=== PATIENT | female | born 1950 | race Caucasian/White ===

== ENCOUNTER 2020-07-19 06:25 | Day surgery (SDC) | payer OTHER, MEDICARE ==
[2020-07-16 18:03] VITALS: BMI 22.4
[2020-07-19] MEDS ORDERED: SUCCINYLCHOLINE CHLORIDE 200 MG/10 ML SYRINGE ONE (07:16)
[2020-07-19] MEDS ORDERED: MIDAZOLAM HCL 2 MG/2 ML SINGLE DOSE VIAL ONE (07:16)
[2020-07-19] MEDS ORDERED: PROPOFOL 20 ML ONE (07:16)
[2020-07-19] MEDS ORDERED: BUPIVACAINE HCL/PF 0.25% (2.5MG/ML) 10 ML VIAL ONE (07:18)
[2020-07-19] MEDS ORDERED: LIDOCAINE HCL 1%, 10 MG/ML (20ML VIAL) ONE (07:19)
[2020-07-19] MEDS ORDERED: oxyCODONE HCL 5 MG TABLET PO PRN (07:53)
[2020-07-19] MEDS ORDERED: ONDANSETRON 4 MG/2 ML VIAL IVPUSH PRN (07:53)
[2020-07-19] MEDS ORDERED: ACETAMINOPHEN 325 MG TABLET (FP) PO PRN (07:53)
[2020-07-19] MEDS ORDERED: ceFAZolin SODIUM 1 GM VIAL ONE (07:54)
[2020-07-19] MEDS ORDERED: LACTATED RINGERS SOLUTION 1,000 ML IV SCH (08:00)
[2020-07-19] MEDS ORDERED: DEXAMETHASONE SOD PHOSPHATE 4 MG/1 ML VIAL ONE (08:01)
[2020-07-19] MEDS ORDERED: KETOROLAC TROMETHAMINE 30 MG/1 ML VIAL ONE (08:01)
[2020-07-19] MEDS ORDERED: BUPIVACAINE HCL/PF 0.25% (2.5MG/ML) 10 ML VIAL IJ ONE (08:09)
[2020-07-19] MEDS ORDERED: LIDOCAINE 1% P/F 10 MG/ML VIAL INF ONE (08:09)
[2020-07-19 09:13] VITALS: TEMP 97.7
[2020-07-19 10:14] VITALS: BP 114/63; PULSE 86
== END 2020-07-19 10:05 | disposition home or self-care (01) ==
LOC: FASU 06:25
PROVIDERS: ATTEND Orthopaedic Surgery
PROC: 01N50ZZ Release Median Nerve, Open Approach (ICD-10-PCS; principal; 2020-07-19 08:09)
DX: G56.02 Carpal tunnel syndrome, left upper limb (principal)
CPT/HCPCS: 94760

== ENCOUNTER 2020-11-15 06:14 | Day surgery (SDC) | payer OTHER, MEDICARE ==
[2020-11-12 09:52] VITALS: BMI 22.1
[2020-11-15] MEDS ORDERED: BUPIVACAINE HCL/PF 0.25% (2.5MG/ML) 10 ML VIAL ONE (07:20)
[2020-11-15] MEDS ORDERED: LIDOCAINE HCL 1%, 10 MG/ML (20ML VIAL) ONE (07:21)
[2020-11-15] MEDS ORDERED: MIDAZOLAM HCL 2 MG/2 ML SINGLE DOSE VIAL ONE (07:24)
[2020-11-15] MEDS ORDERED: PROPOFOL 20 ML ONE ×2 (07:28)
[2020-11-15] MEDS ORDERED: SUCCINYLCHOLINE CHLORIDE 200 MG/10 ML SYRINGE ONE (07:28)
[2020-11-15] MEDS ORDERED: ceFAZolin SODIUM 1 GM VIAL ONE (07:43)
[2020-11-15] MEDS ORDERED: ONDANSETRON 4 MG/2 ML VIAL ONE (07:43)
[2020-11-15] MEDS ORDERED: DEXAMETHASONE SOD PHOSPHATE 4 MG/1 ML VIAL ONE (07:43)
[2020-11-15 08:27] VITALS: TEMP 98.4
[2020-11-15 09:14] VITALS: BP 118/64; PULSE 59
== END 2020-11-15 09:10 | disposition home or self-care (01) ==
LOC: FASU 06:14
PROVIDERS: ATTEND Orthopaedic Surgery
PROC: 01N50ZZ Release Median Nerve, Open Approach (ICD-10-PCS; principal; 2020-11-15 07:58)
DX: G56.01 Carpal tunnel syndrome, right upper limb (principal)

== ENCOUNTER 2022-01-03 22:46 | Emergency (ER) | payer OTHER, MEDICARE ==
[2022-01-03] MEDS ORDERED: SILVER SULFADIAZINE 1% TOP CREAM 50 GM JAR TP ONE (22:52)
[2022-01-03 22:59] VITALS: BP 134/65; PULSE 103; TEMP 98.2; BMI 22.1
== END 2022-01-03 23:11 | disposition home or self-care (01) ==
LOC: FER 22:46
DX: T24.101A Burn of first degree of unspecified site of right lower limb, except ankle and foot, initial encounter (principal)
CPT/HCPCS: 99283-25